=== PATIENT | female | born 1985 | race Caucasian/White ===

== ENCOUNTER 2022-12-26 20:33 | Outpatient (REF) | payer OTHER, SELFPAY ==
[2022-12-31 21:07] LABS: Age Gdln ACOG Testing Note (.); HPV Aptima Negative (Negative); IGP, Aptima HPV, rfx 16/18,45 Note (.)
== END 2022-12-26 20:34 | disposition home or self-care (01) ==
LOC: LAB 20:33
PROVIDERS: Visit Provider Obstetrics & Gynecology
DX: Z12.4 Encounter for screening for malignant neoplasm of cervix (principal); Z11.51 Encounter for screening for human papillomavirus (HPV)
CPT/HCPCS: 87624; G0145

== ENCOUNTER 2024-12-31 14:58 | Outpatient (REF) | payer OTHER, SELFPAY ==
--- OUTSIDE RECORDS SUMMARY | 2024-12-31 08:30 | XMS_ITS | Encounter Summary ---
Author Organization [facility] Address [address] [place] [address] Care Team Providers Care Epic Director Name Role Phone Unavailable Primary Care Provider Unavailabl e Reason for Visit * Reason Comments Well Women Visit Encounter Details Date Type Department Care Team (Latest Contact Info) Description 12/31/2024 8:30 AM EDT Procedure [facility] [address] [facility] [place] [address] [place] [id number] Hernandez Hays, DO [address] [place], [place] [id number] Well woman exam with routine gynecological exam; Encounter for screening mammogram for malignant neoplasm of breast; Menorrhagia with regular cycle; Encounter for weight management Social History Tobacco Use Types Packs/Day Years Used Date Smoking Tobacco: Every Day Cigarettes Alcohol Use Standard Drinks/Week Comments Yes 0 (1 standard drink = 0.6 oz pur e alcohol) occasional alcohol PHQ-2 Answer Date Recorded Patient Health Questionnaire-2 Score 0 12/27/2022 Comments No Sex and Gender Information Value Date Recorded Sex Assigned at Female 12/19/2022 10:22 AM EDT Legal Sex Female 11:47 PM EDT Gender Identity Female 12/19/2022 10:22 AM EDT Sexual Orientation Straight 12/19/2022 10 :22 AM EDT documented as of this encounter Last Filed Vital Signs Vital Sign Reading Time Taken Comments Blood Pressure 126/86 12/31/2024 8:36 AM EDT Pulse - - Temperature - - Respiratory Rate - - Oxygen Saturation - - Inhaled Oxygen Concentration - - Weight 99.6 kg (219 lb 8 oz) 12/31/2024 8:36 AM EDT Height 174 cm (5' 8.5 ) 12/31/2024 8:36 AM EDT Body Mass Index 32.89 12/31/2024 8:36 AM EDT documented in this encounter Progress Notes * Lynsey Blake LPN - 12/31/2024 8:30 AM EDT Reason for Appointment: Patient ID: Lolita Hunter is a 39 y.o. female who presents for Well Women Visit Patient presents today for Annual Exam. MEDICATIONS Current Outpatient Medications Medication Instructions Levonorgestrel (Mirena, 52 MG,) 20 MCG/DAY intrauterine device as directed Intrauterine ALLERGIES Allergies Allergen Reactions Aspirin Unknown Ibuprofen Unknown PROBLEMS Active Ambulatory Problems Diagnosis Date Noted Anxiety 12/25/2022 Gastroesophageal reflux disease 12/25/2022 Insulin resistance 12/25/2022 Major depressive disorder, single episode, unspecified 12/25/2022 Overweight 12/25/2022 Resolved Ambulatory Problems Diagnosis Date Noted No Resolved Ambulatory Problems Past Medical History: Diagnosis Date Depression GERD (gastroesophageal reflux disease) Intrauterine device surveillance Overweight (BMI 25.0-29.9) HISTORY PAST MEDICAL HISTORY SOCIAL HISTORY Past Medical History: Diagnosis Date Anxiety Depression GERD (gastroesophageal reflux disease) Intrauterine device surveillance Overweight (BMI 25.0-29.9) Social History Tobacco Use Smoking status: Every Day Types: Cigarettes Smokeless tobacco: Not on file Substance Use Topics Alcohol use: Yes Comment: occasional alcohol Drug use: Never FAMILY HISTORY Family History Problem Relation Name Age of Onset Hypertension Mother Cancer Mother Arthritis Mother Cancer Maternal Grandmother Cancer Maternal Grandfather SURGICAL HISTORY Past Surgical History: Procedure Laterality Date CERCLAGE CERVIX 2011 SECTION, LOW TRANSVERSE REVIEW OF SYSTEMS Review of Systems: Review of Systems Constitutional: Negative. HENT: Negative. Eyes: Negative. Respiratory: Negative. Cardiovascular: Negative. Gastrointestinal: Negative. Genitourinary: Positive for menstrual problem and vaginal bleeding. Musculoskeletal: Negative. Skin: Negative. Neurological: Negative. All other systems reviewed and are negative. Hematological: Negative. Endocrine: Negative. Allergic/Immunologic: Negative. OBJECTIVE Objective: Physical Exam Constitutional: Appearance: Normal appearance. She is well-developed. Genitourinary: Vulva normal. Breasts: Breasts are soft. Right: Normal. Left: Normal. Cardiovascular: Rate and Rhythm: Normal rate and regular rhythm. Pulmonary: Effort: Pulmonary effort is normal. Breath sounds: Normal breath sounds. Abdominal: General: Bowel sounds are normal. There is no distension. Palpations: Abdomen is soft. Tenderness: There is no abdominal tenderness. There is no guarding or rebound. Musculoskeletal: General: No swelling. Normal range of motion. Right lower leg: No edema. Left lower leg: No edema. Neurological: Mental Status: She is alert and oriented to person, place, and time. Skin: General: Skin is warm and dry. Psychiatric: Mood and Affect: Mood normal. Behavior: Behavior normal. Vitals and nursing note reviewed. Exam conducted with a casting coordinator present. Vitals: Estimated body mass index is 32.89 kg/m² as calculated from the following: Height as of this encounter: 5' 8.5 . Weight as of this encounter: 219 lb 8 oz. BP: 126/86 No LMP recorded. (Menstrual status: IUD). ASSESSMENT & PLAN ICD-10-CM 1. Well woman exam with routine gynecological exam Z01.419 THIN PREP TIS PAP AND HR HPV DNA 2. Encounter for screening mammogram for malignant neoplasm of breast Z12.31 Bilateral screening mammogram Bilateral screening mammogram Annual: Patient presents today for an annual exam. Patient states she is doing well and has complaints of menorrhagia and weight gain. Patient to start on Metformin and Adipex. Consent signed at visit today.Patient will obtain lab wok and ultrasound & return to office for Endometrial Biopsy. Patient to discuss dates with Image Scientist prior to leaving office today for Hysterectomy. Pap was obtained without difficulty and patient given mammogram order to have scheduled/obtained. Orders Placed This Encounter Procedures Bilateral screening mammogram US Pelvis w/ TV CBC and differential TSH hCG, quantitative, Protime-INR T4, free APTT Hemoglobin A1c Follow Up: Patient to return to clinic in 1 month for Adiex#2 appointment & also setup Endometrial Biopsy/Pre-op appointment accordingly for hysterectomy. Patient is to return in one year for annual unless needed otherwise. Documented by Lynsey Blake LPN on behalf of: Hernandez Hays DO documented in this encounter Plan of Treatment Upcoming Encounters Date Type Department Care Team (Late st Contact Info) Description 01/27/2025 3:30 PM EDT Office Visit [facility] [address] [place] [address] [place] [address] Katarzyna Manuel PA [address] [facility] [place] [address] 03/22/2025 2:30 PM EDT Ancillary Procedure [facility] [address] [facility] [place] [address] [place] [phone] 04/06/2025 2:30 PM EDT Procedure Visit [facility] [address] [facility] [place] [address] [place] [phone] Hernandez Hays, DO [address] [facility] [place] [address] Scheduled Orders Name Type Priority Associated Diagnoses Orde r Schedule Bilateral screening mammogram Imaging Routine Encounter for screening mammogram for malignant neoplasm of breast Expected: 12/31/2024 (Approximate), Expires: 03/03/2026 THIN PREP TIS PAP AND HR HPV DNA Pathology and Cytology Routine Well woman exam with routine gynecological exam Ordered: 12/31/2024 CBC and differential Lab Routine Menorrhagia with regular cycle Ordered: 12/31/2024 TSH Lab Routine Menorrhagia with regular cycle Ordered: 12/31/2024 hCG, quantitative, Lab Routine Menorrhagia with regular cycle Ordered: 12/31/2024 Protime-INR Lab Routine Menorrhagia with regular cycle Ordered: 12/31/2024 T4, free Lab Routine Menorrhagia with regular cycle Ordered: 12/31/2024 APTT Lab Routine Menorrhagia with regular cycle Expected: 12/31/2024 (Approximate), Expires: 12/31/2025 Hemoglobin A1c Lab Routine Menorrhagia with regular cycle Ordered: 12/31/2024 US Pelvis w/ TV Imaging Routine Menorrhagia with regular cycle Expected: 12/31/2024, Expires: 12/31/2025 documented as of this encounter Visit Diagnoses Diagnosis Well woman exam with routine gynecological exam Routine gynecological examination Encounter for screening mammogram for malignant neoplasm of breast Menorrhagia with regular cycle Encounter for weight management documented in this encounter
--- OUTSIDE RECORDS SUMMARY | 2024-12-31 15:01 | XMS_ITS | Data Portability ---
Author Organization [place] - [facility], Kaley Burns Address [address] [place] [address] Assessment No assessment recorded. Plan of Treatment Reminders Order Date Submit Date Provider Last Modified By Organization Details Last Modified Time Details Appointments None recorded. Lab None recorded. Referral None recorded. Procedures None recorded. Surgeries None recorded. Imaging None recorded. Medication Orders pseudoephed rine-guaife nesin ER 60 mg-600 mg tablet,exte nd release 12hr 2024 025 [id number], [address] [place], [address], 15:29:03 fluticasone propionate 50 mcg/actuati on nasal spray,suspe nsion 2024 025 [facility], [address] [facility] [address], [place] [address], [place], [place], [id number], 15:29:43 Patient TargetsNo targets recorded. Patient Instructions Encounter Date Encounter Id Patient Instructions Last Modified By Organization Details Last Modified Time 07/28/2024 [id number] upper respirator y infection (cold): care instructions [email or web address] Not available 07/28/2024 15:46:14 middle ear fluid : care instructions [email or web address] Not available 07/28/2024 15:46:14 Discussed that this is likely viral given symptoms and duration. Discussed medication usage. Advised that ome typically resolves on its own, but may take several weeks after initial uri symptoms to clear. Encouraged increased fluid intake, adequate rest and proper hand hygiene. Follow up if symptoms persist and/or worsen. [email or web address] Not available 07/28/2024 15:46:07 Reason for Referral None Reported. Procedures Surgical History Date Name Laterality Status Provider Name and Address Organization Details Recorded Time 8 Caesarean Section completed JANINE VALVERDE IN [facility] 07/28/2024 15:11:31 Imaging Results None recorded. Procedure Notes None recorded. Medical Equipment None Reported. Allergies No known drug allergies Medications Name Sig Start Date Stop Date Status Note LastModified by Organization Details LastModified Time quetiapine 25 mg tablet TAKE 1 TABLET BY MOUTH AT BEDTIME 07/28 completed Not Available Not Available Not Available pseudoephed rine-guaife nesin ER 60 mg-600 mg tablet,exte nd release 12hr Take 2 tablets every 12 hours by oral route as needed for 7 days. 2024 active Not Available Not Available Not Avai lable fluticasone propionate 50 mcg/actuati on nasal spray,suspe nsion [place] 2 sprays every day by intranasa l route for 30 days. 2024 active Not Available Not Available Not Avai lable metformin ER 500 mg tablet,exte nded release 24 hr TAKE 1 TABLET BY MOUTH IN THE EVENING WITH MEALS, DO NOT CRUSH, CHEW, OR SPLIT 07/28 completed Not Available Not Available Not Available escitalopra m 20 mg tablet TAKE 1 TABLET BY MOUTH EVERY DAY 07/28 completed Not Available Not Available Not Available Vitals Date Recorded Body height Body mass index (BMI) Body weight Body temperature Oxygen saturation Oxygen saturation in Arterial blood by Pulse oximetry Heart rate Systolic And Diastolic Provider Name and Address Organization Details Last Updated DateTime 5 172.72 cm 33.8 kg/m2 766960. 22 g 98.4 [degF] 99 % 99 % 83 /min 115/80 mm[Hg] JANINE VALVERDE IN [facility] 15:15:41 Social History Question Answer Notes LastModified by Organizat ion Details LastModified Time Tobacco Smoking Status Smoker, Current Status Unknown JANINE giron, [place] [facility] 07/28/2024 15:11:30 What Is Your Level Of Caffeine Consumption? Occasional Information not available 07/28/2024 How Much Tobacco Do You Chew? None [email or web address] Information not available 07/28/2024 What Is The Highest Grade Or Level Of School You Have Completed Or The Highest Degree You Have Received? [id number] [email or web address] Information not available 07/28/2024 Cigar Smoking No [email or web address] Information not available 07/28/2024 Does Anyone Insult Or Talk Down To You? Never [email or web address] Information not available 07/28/2024 Does Anyone Physically Hurt You At Home? Never [email or web address] Information not available 07/28/2024 Does Anyone Scream Or Curse At You? Never [email or web address] Information not available 07/28/2024 Does Anyone Threaten/bully You With Harm? Never [email or web address] Information not available 07/28/2024 Lives With Spouse [email or web address] Information no t available 07/28/2024 Sleep Habits 8 Hours Interupted [email or web address] Information not available 07/28/2024 Have You Ever Served In The ? No [email or web address] Information not available 07/28/2024 What Was The Date Of Your Most Recent Tobacco Screening? 07/28/2024 [email or web address] Information not available 07/28/2024 What Is Your Relationship Status? [email or web address] Information not available 07/28/2024 How Much Tobacco Do You Smoke? 2 PPW Information not available 07/28/2024 Has Tobacco Cessation Counseling Been Provided? No [email or web address] Information not available 07/28/2024 How Many Years Have You Smoked Tobacco? 20 [email or web address] Information not available 07/28/2024 Sex: Unknown Functional Status Question Answer Note LastModified by Organizat ion Details LastModified Time Do you or have you ever used any other forms of tobacco or nicotine? No [email or web address] Information not available 07/28/2024 What is your level of alcohol consumption? Moderate [email or web address] Information not available 07/28/2024 Do you or have you ever used smokeless tobacco? Never used smokeless tobacco [email or web address] Information not available 07/28/2024 What is your occupation? [employer] Information not available 07/28/2024 Mental Status None recorded. Family History Relationship Description Onset Age of this Age Resolved Age Notes LastModified by Organization Details LastModified Time Mother Arthritis [email or web address] Not availa ble 07/28/2024 15:10:16 Mother Hypertensive disorder Not available 07/28 15:10:16 Medical History Condition Response Sinus Infections Y Anxiety Y Depression Y Gynecological HistoryNo gynecological history recorded. Obstetrics History GPAL:G 0 P 0 0 0 0 Past Encounters Encounter ID Performer Location Encounter Start Date Encounter Closed Date Diagnosis/Indication Diagnosis SNOMED-CT Code Diagnosis ICD10 Code Diagnosis Note [id number] Bertin Bernardo MD [facility] [address] [place] [address] 07/28/2024 15:07:49 07/28/2024 15:46:42 Acute upper respiratory infection 26344956 J06.9 Serous otitis media 8032 7007 H65.02 Health Concerns Section Related Observation LastModified by Organization Detai ls LastModified Time None Recorded Concern Status LastModified by Organization Details LastModified Time None Recorded Advance Directives Directive None Recorded Payers Insurance Date Sequence Insurance Name Policy Number Policy [place] Covered Member ID [place] Member ID Guarantor Name 04/20/2024 1 *SELF PAY* UNKNOWN [facility] NO_INS_NU MBER_AVAI LABLE [facility] 05/28/2024 1 *SELF PAY* UNKNOWN [facility] NO_INS_NU MBER_AVAI LABLE [facility] 07/28/2024 1 [facility] MEDBEN - PPO [id number] [facility] [id number] [facility] Notes Date Note Type Note Provider Name and Address Organization Details Recorded Time 07/28/2024 text/html AM is a 39 yo female presenting with bilateral ear pain, sore throat and nasal congestion onset 07/26/2024. Left ear pain greater than right. Pt has taken tylenol sinus with some relief in symptoms. Ears hurt worse when pt is up moving around. Pts daughter with similar symptoms. Lexie Carvajal NP [address], [place], [address], [place] - [facility] 07/28/2024 15:46:17 OBGyn Episode No OBEpisode recorded.
--- OUTSIDE RECORDS SUMMARY | 2024-12-31 15:01 | XMS_ITS | Encounter Summary ---
Author Organization [facility] Address [address] [facility] [place] [address] Care Team Providers Care Congressional Representative Name Role Phone Unavailable Primary Care Provider Unavailabl e Encounter Details Date Type Department Care Team (Latest Contact Info) Description 12/30/2024 Travel Social History Tobacco Use Types Packs/Day Years [...] AM EDT documented as of this encounter Plan of Treatment Upcoming Encounters Date Type Department Care Team (Late st Contact Info) Description 01/27/2025 3:30 PM EDT Office Visit [facility] OB [address] [place] [address] [place] [address] Katarzyna Manuel PA [address] [facility] [address] [place], [place] [address] 03/22/2025 2:30 PM EDT Ancillary Procedure [facility] [place] [facility] [place] [address] 04/06/2025 2:30 PM EDT Procedure Visit [facility] OB [address] [place], [place] [address], [place] [address] Hernandez Hays, [address] [place], [place] [phone] documented as of this encounter Visit Diagnoses Not on filedocumented in this encounter
--- OUTSIDE RECORDS SUMMARY | 2024-12-31 15:01 | XMS_ITS | Encounter Summary ---
Author Organization [facility] Address [address] [facility] [place] [address] Care Team Providers Care Master Barber Name Role Phone Unavailable Primary Care Provider Unavailabl e Encounter Details Date Type Department Care Team (Late Contact Info) Description 12/31/2024 Bamboo flowsheet [facility] [address] [facility] [place] [address] [place] [address] Hernandez Hays, DO [address] [facility] [address] [place], [facility] Social History Tobacco Use Types Packs/Day Years [...] PM EDT [facility] [address] [facility] [address] [place] [address] Katarzyna Manuel PA [address] [place], [facility] 03/22/2025 2:30 PM EDT Ancillary Procedure [facility] OB [address] [facility] [phone] 04/06/2025 2:30 PM EDT Procedure Visit [facility] OB [address] [facility] [place] [address] [place] [address] Hernandez Hays, [address] [facility] [address] [place], [place] [phone] documented as of this encounter Visit Diagnoses Not on filedocumented in this encounter
--- OUTSIDE RECORDS SUMMARY | 2024-12-31 15:01 | XMS_ITS | Clinical Summary ---
Author Organization [facility] Address [address] [place] [address] Care Team Providers Care Environmental Tech Name Role Phone Unavailable Primary Care Provider Unavailabl e Allergies Active Allergy Reactions Criticality Noted Date Comments Aspirin Unknown 12/26/2022 Ibuprofen Unknown 12/26/2022 Medications Levonorgestrel (Mirena, 52 MG,) 20 MCG/DAY intrauterine device as directed Intrauterine Active phentermine (Adipex-P) 37.5 MG tabletIndicatio ns:Encounter for weight management Take 1 tablet (37.5 mg) by mouth in the morning. Take before meals. 30 tablet 01/01/20 25 2024 Active metFORMIN XR (Glucophage-XR) 500 MG 24 hr tabletIndicatio ns:Encounter for weight management Take 1 tablet (500 mg) by mouth in the evening. Take with meals Do not crush, chew, or split. 30 tablet 11 01/01/20 25 2024 Active FLUoxetine (PROzac) 10 MG capsule TAKE 1 CAPSULE BY MOUTH EVERY DAY FOR 30 DAYS 2024 Discontinued phentermine (Adipex-P) 37.5 MG tabletIndicatio ns:Weight gain Take 1 tablet (37.5 mg) by mouth in the morning. Take before meals. 30 tablet 02/22/20 23 2024 Discontinued metFORMIN XR (Glucophage-XR) 500 MG 24 hr tabletIndicatio ns:Weight gain TAKE 1 TABLET BY MOUTH IN THE EVENING WITH MEALS, DO NOT CRUSH, CHEW, OR SPLIT 90 tablet 4 03/27/20 23 2024 Discontinued Active Problems Problem Noted Date Diagnosed Date Anxiety 12/25/2022 Gastroesophageal reflux disease 12/25/2022 Insulin resistance 12/25/2022 Major depressive disorder, single episode, unspe cified 12/25/2022 Overweight 12/25/2022 Encounters Date Type Department Care Team Description 12/31/2024 8:30 AM EDT Procedure Visit [facility] OB [address] [place] [address] Hernandez Hays DO Well woman exam with routine gynecological exam; Encounter for screening mammogram for malignant neoplasm of breast; Menorrhagia with regular cycle; Encounter for weight management 12/31/2024 Bamboo flowsheet [facility] [address] [place] [address] Hernandez Hays DO 12/30/2024 Travel from Last 3 Months Family History Medical History Relation Name Comments Cancer Maternal Grandfather Cancer Maternal Grandmother Arthritis Mother Cancer Mother Hypertension Mother Relation Name Status Comments Maternal Grandfather Maternal Grandmother Mother Social History Tobacco Use Types Packs/Day Years [...] Orientation Straight 12/19/2022 10 :22 AM EDT Last Filed Vital Signs Vital Sign Reading [...] Mass Index 32.89 12/31/2024 8:36 AM EDT Plan of Treatment Upcoming Encounters Date Type Department Care Team (Late st Contact Info) Description 01/27/2025 3:30 PM EDT Office Visit [facility] OB [address] [facility] [place] [address] Katarzyna Manuel PA [address] [facility] [address] [place], [place] [phone] 03/22/2025 2:30 PM EDT Ancillary Procedure [facility] OB [address] [facility] [place] [address] [place] [address] 04/06/2025 2:30 PM EDT Procedure Visit [facility] OB [address] [facility] [place] [address] [place] [address] Hernandez Hays DO [address] [facility] [address] [place], [place] [phone] Insurance [email or web address]
--- OUTSIDE RECORDS SUMMARY | 2024-12-31 15:01 | XMS_ITS | Encounter Summary ---
Author Organization [facility] Address [address] [facility] [place] [address] Care Team Providers Care Middle [employer] Guidance Counselor Name Role Phone Katarzyna Manuel Unavailable Encounter Details Date Type Department Care Team (Late Contact Info) Description 01/23/2023 Abstract [facility] OB [address] [facility] [place] [place] [address] [place] [address] Katarzyna Manuel PA [address] [place] [address] [place] [address] Social History Tobacco Use Types Packs/Day Years [...] Orientation Straight 12/19/2022 10 :22 AM EDT COVID-19 Exposure Response Date Recorded In the last 10 days, have yo u been in contact with someone who was confirmed or suspected to have Coronavirus/COVID-19? No / Unsure 01/22/2023 7:52 AM EDT documented as of this encounter Plan of Treatment Upcoming Encounters Date Type Department Care Team ([facility] Contact Info) Description 01/27/2025 3:30 PM EDT Office Visit [facility] OB [address] [facility] [place] [address] [place] [address] Katarzyna Manuel PA [address] [facility] [place] [address] 03/22/2025 2:30 PM EDT Ancillary Procedure [facility] OB [address] [facility] [place] [address] [place] [phone] 04/06/2025 2:30 PM EDT Procedure Visit [facility] OB [address] [facility] [place] [address] [place] [phone] Hernandez Hays, DO [address] [facility] [place] [address] documented as of this encounter Visit Diagnoses Not on filedocumented in this encounter Care Teams [employer] Guidance Counselor Relationship Specialty Start Date End Date Katazryna Manuel PA [address] [place] [address] [place] [address] PCP - [facility] [place] [employer] 02/15/22 02/26/24 documented as of this encounter
[2025-01-02 15:10] LABS: Age Gdln ACOG Testing Note (.); IGP, Aptima HPV, rfx 16/18,45 Note (.)
== END 2024-12-31 14:59 | disposition home or self-care (01) ==
LOC: LAB 14:58
PROVIDERS: PCP Family Medicine; Visit Provider Obstetrics & Gynecology
DX: Z01.419 Encounter for gynecological examination (general) (routine) without abnormal findings (principal)
CPT/HCPCS: 87624; 88175

== ENCOUNTER 2025-01-14 10:38 | Outpatient (OUT) | payer OTHER, SELFPAY ==
--- NOTE | 2025-01-14 | MM_ITS ---
Patient Name: ASHWIN GODOY MR#: [id number] : 1985 Exam Date: 01/14/2025 Ordering Doctor: DR ILEANA OROZCO . RADIOLOGY REPORT PROCEDURE: MM TOMOSYNTHESIS SCREENING BI COMPARISON: None. INDICATIONS: Screening for malignancy in breasts Calculator Name NCI Breast Cancer Risk Assessment Tool 5 Year Breast Cancer Risk Not Reported. Lifetime Breast Cancer Risk Not Reported. Personal Breast Cancer No Personal Ovarian Cancer No Treatments None Family Cancers None LOCATION: The BREAST COMPOSITION: The breasts are heterogeneously dense, which may obscure small masses. FINDINGS: RIGHT BREAST: No significant suspicious finding. LEFT BREAST: Focal asymmetries are noted in the inferior and medial aspect of the left breast measuring 6 and 7 mm is in greatest dimension 7.5 and 11.5 cm from the nipple. These are in the middle depth . DIAGNOSTIC CATEGORY 0--INCOMPLETE: NEED ADDITIONAL IMAGING EVALUATION. RECOMMENDATIONS: ADDITIONAL MAMMOGRAPHIC VIEWS REQUIRED: LEFT BREAST - spot compressed views of the left breast with ultrasound if necessary is recommended. PLEASE NOTE: A NORMAL MAMMOGRAM DOES NOT EXCLUDE THE POSSIBILITY OF BREAST CANCER. A CLINICALLY SUSPICIOUS PALPABLE LUMP SHOULD BE BIOPSIED. Dictated by: Frankie Zurita MD on 01/14/2025 at 16:42 Approved by: Frankie Zurita MD on 01/14/2025 at 16:48
== END 2025-01-14 10:39 | disposition home or self-care (01) ==
LOC: MAMMO 10:42
PROVIDERS: PCP Nurse Practitioner; Visit Provider Obstetrics & Gynecology
DX: Z12.31 Encounter for screening mammogram for malignant neoplasm of breast (principal); R92.8 Other abnormal and inconclusive findings on diagnostic imaging of breast
CPT/HCPCS: 77063; 77067

== ENCOUNTER 2025-03-22 14:44 | Outpatient (OUT) | payer OTHER, SELFPAY ==
--- OUTSIDE RECORDS SUMMARY | 2025-03-22 14:48 | XMS_ITS | Clinical Summary ---
Author Organization [facility] tem Address [id number] [address] [place] [address] Care Team Providers Care Mill Manager Name Role Phone Unavailable Primary Care Provider Unavailabl e Social History Tobacco Use Types Packs/Day Years Used Date Smoking Tobacco: Never Assessed Childcare Answer Date Recorded Childcare Unknown 11/26/2018 Employment Answer Date Recorded Employment Unknown 11/26/2018 Comments Unknown Sex and Gender Information Value Date Recorded Sex Assigned at Not on file Legal Sex Female 10:42 AM EDT Gender Identity Not on file Sexual Orientation Not on file Plan of Treatment Not on file Medical Devices Not on file
--- OUTSIDE RECORDS SUMMARY | 2025-03-22 14:48 | XMS_ITS | Encounter Summary ---
Author Organization [facility] Address [address] [facility] [place] [address] Care Team Providers Care Algorithm Design Engineer Name Role Phone Unavailable Primary Care Provider Unavailabl e Encounter Details Date Type Department Care Team (Latest Contact Info) Description 03/16/2025 Travel Social History Tobacco Use Types Packs/Day [...] Care Team (Late st Contact Info) Description 04/06/2025 2:30 PM EDT Procedure Visit [facility] [address] [facility] [address] [place] [address] Hernandez Hays DO [address] [facility] [address] [place], [place] [address] 05/19/2025 10:30 AM EST Office Visit [facility] [address] [facility] [place] [address] [place] [address] Katarzyna Manuel PA [address] [facility] [address] [place], [place] [address] documented as of this encounter Visit Diagnoses Not on filedocumented in this encounter
--- OUTSIDE RECORDS SUMMARY | 2025-03-22 14:48 | XMS_ITS | Encounter Summary ---
Author Organization [facility] Address [address] [facility] [place] [address] Care Team Providers Care Manager Rental Name Role Phone Unavailable Primary Care Provider Unavailabl e Encounter Details Date Type Department Care Team ([facility] Contact Info) Description 01/06/2025 Orders Only [facility] [place] [address] [facility] [place] [address] [place] [phone] Mary Salguero LPN [address] [facility] [place] [facility] Social History Tobacco Use Types Packs/Day Years [...] Encounters Date Type Department Care Team (Late Contact Info) Description 04/06/2025 2:30 PM EDT Procedure Visit [facility] [place] [address] [place] [phone] Hernandez Hays DO [address] [place] [address] 05/19/2025 10:30 AM EST Office Visit [facility] [address] [place] [address] Katarzyna Manuel PA [address] [facility] [place] [address] documented as of this encounter Procedures Procedure Name Priority Date/Time Associated Diagnosis Comments PAP SMEAR Routine 12/31/2024 12:00 AM EDT documented in this encounter Results * Pap Smear (12/31/2024 12:00 AM EDT) Swab Cervical swab / Unknown us Lis Nurse [facility] LAB CYTOLOGY ORDERABLES Final Result EXTERNAL LAB documented in this encounter Visit Diagnoses Not on filedocumented in this encounter
--- OUTSIDE RECORDS SUMMARY | 2025-03-22 14:48 | XMS_ITS | Clinical Summary ---
Author Organization [facility] Address [address] [place] [address] Care Team Providers Care Wind Instrument Repairer Name Role Phone Unavailable Primary Care Provider Unavailabl e Allergies Active Allergy Reactions Criticality Noted Date Comments Aspirin Unknown 12/26/2022 Ibuprofen Unknown 12/26/2022 Medications Levonorgestrel (Mirena, 52 MG,) 20 MCG/DAY intrauterine device as directed Intrauterine Active phentermine (Adipex-P) 37.5 MG tabletIndicatio ns:Encounter for weight management Take 1 tablet (37.5 mg) by mouth in the morning. Take before meals. 90 tablet 02/25/20 25 2024 Active metFORMIN XR (Glucophage-XR) 500 MG 24 hr tabletIndicatio ns:Encounter for weight management Take 1 tablet (500 mg) by mouth in the evening. Take with meals Do not crush, chew, or split. 30 tablet 11 01/01/20 25 2024 Discontinued phentermine (Adipex-P) 37.5 MG tabletIndicatio ns:Encounter for weight management Take 1 tablet (37.5 mg) by mouth in the morning. Take before meals. 30 tablet 01/28/20 25 2024 Discontinued Active Problems Problem Noted Date Diagnosed Date Anxiety 12/25/2022 Gastroesophageal reflux disease 12/25/2022 Insulin resistance 12/25/2022 Major depressive disorder, single episode, unspe cified 12/25/2022 Overweight 12/25/2022 Encounters Date Type Department Care Team Description 03/16/2025 Travel 02/24/2025 3:30 PM EDT Office Visit [facility] [place] [facility] [address] [place] [address] [place] [phone] Katarzyna Manuel PA Encounter for weight management 02/24/2025 Bamboo flowsheet [facility] [place] [facility] [address] [place] [address] Katarzyna Manuel PA 01/29/2025 Results Follow-Up [facility] [place] [facility] [address] [facility] [place] [address] Radha Nj LPN Left diagnostic mammogram with tomosynthesis 01/29/2025 Abstract [facility] [place] [facility] [address] [facility] [place] [address] Ileana Hays, 01/28/2025 External Result Encounter [facility] External Department Unsolicited Ileana Hays, DO 01/27/2025 3:30 PM EDT Office Visit [facility] [address] [facility] [place] [place] [address] Katarzyna Manuel PA Encounter for weight management 01/27/2025 Bamboo flowsheet [facility] [address] [place] [address] Katarzyna Manuel PA 01/18/2025 Telephone [facility] [address] [facility] [place] [address] Lyndsay Whitman MA 01/14/2025 Clinisync Result Encounter [facility] External Department Unsolicited Ileana Hays, DO 01/06/2025 Orders Only [facility] [address] [place] [address] Mary Salguero LPN 12/31/2024 8:30 AM EDT Procedure Visit [facility] [address] [place] [address] Ileana Hays, Well woman exam with routine gynecological exam; Encounter for screening mammogram for malignant neoplasm of breast; Menorrhagia with regular cycle; Encounter for weight management 12/31/2024 Clinisync Result Encounter [facility] External Department Unsolicited Ileana Hays DO 12/31/2024 Bamboo flowsheet [facility] [address] [place] [address] Ileana Hays DO 12/30/2024 Travel from Last 3 [...] Sign Reading Time Taken Comments Blood Pressure 120/70 02/24/2025 3:33 PM EDT Pulse - - Temperature - - Respiratory Rate - - Oxygen Saturation - - Inhaled Oxygen Concentration - - Weight 94.3 kg (208 lb) 02/24/2025 3:33 PM EDT Height 174 cm (5' 8.5 ) 12/31/2024 8:36 AM EDT Body Mass Index 31.17 12/31/2024 8:36 AM EDT Plan of Treatment Upcoming Encounters Date Type Department Care Team (Late st Contact Info) Description 04/06/2025 2:30 PM EDT Procedure Visit [facility] [place] [address] [place] [phone] Ileana Hays, DO [address] [place], [place] [phone] 05/19/2025 10:30 AM EST Office Visit [facility] [address] [place] [address] Katarzyna Manuel PA [address] [place] [address] [address] [place], [facility] Procedures Procedure Name Priority Date/Time Associated Diagnosis Comments BI MAMMOGRAM DIAGNOSTIC TOMOSYNTHESIS LEFT 01/28/2025 1:43 PM EDT MM TOMOSYNTHESIS SCREENING BI 01/14/2025 4:48 PM EDT IGP,APTIMA HPV,AGE GDLN Routine 12/31/2024 8:27 AM EDT PAP SMEAR Routine 12/31/2024 12:00 AM EDT from Last 3 Months Results * Left diagnostic mammogram with tomosynthesis (01/28/2025 1:43 PM EDT) Anatomical Region Laterality Modality Breast Left Mammography 01/28/2025 1:43 PM EDT Impressions 01/28/2025 2:13 PM EDT IMPRESSION: NO MAMMOGRAPHIC EVIDENCE OF MALIGNANCY. ROUTINE FOLLOW-UP IS RECOMMENDED IN ONE YEAR. RESULT CODE: 1 Negative DENSITY CODE: 2 (approximately 25-50% glandular) There are scattered areas of fibroglandular density. FOLLOW UP: 1YR The false-negative rate of mammography is approximately 10-percent. Management of a palpable abnormality must be based on clinical grounds. Patient was entered into a reminder system with a target due date for the next mammogram. Impression dictated by: Henry Leon Jr., D.OEnrique 01/28/2025 2:16 PM Dictation Location: [place] [address] Addendum Dictated By: Henry Leon Jr, DO Addendum Signed By: <Electronically signed by Henry Leon Jr, DO in OV> 01/28/251415 Addendum Cosigned By: DD/ TD/TT: 01/28/25 CLINICAL DATA: Callback focal asymmetries left breast Left DIAGNOSTIC MAMMOGRAM - WITH TOMOSYNTHESIS AND CAD COMPARISON:Outside mammogram 01/14/2025 Tomosynthesis imaging was obtained using low-dose digital technique. This examination was reviewed with the aid of CAD. FINDINGS: The left breast is composed of scattered fibroglandular densities. Previously identified focal asymmetries compress out on the spot compression view suggests overlapping stroma. MM/MM diagnostic mammo LT w/CAD IMPRESSION: NO MAMMOGRAPHIC EVIDENCE OF MALIGNANCY. ROUTINE FOLLOW-UP IS RECOMMENDED IN ONE YEAR. RESULT CODE: 1 Negative DENSITY CODE: 2 (approximately 25-50% glandular) There are scattered areas of fibroglandular density. FOLLOW UP: 1YR The false-negative rate of mammography is approximately 10-percent. Management of a palpable abnormality must be based on clinical grounds. Patient was entered into a reminder system with a target due date for the next mammogram. Dictation Location: [place] [address] Dictated By: Henry Leon Jr, DO 01/28/25 1343 Signed By: 01/28/25 1416 Narrative 01/28/2025 2:13 PM EDT [facility] [address] [place] [address] Mammography Report Signed with Addenda Patient: Ashwin Godoy MR#: [id number] : 1985 Acct:[id number] Age/Sex: 40 / F Adm Date: 01/28/25 Loc: [place] Room: Type: [facility] Attending Dr: Ileana Hays DO Ordering Provider: Ileana Hays Date of Service: 01/28/25 Procedure(s): MM diagnostic mammo LT w/CAD Accession Number(s): ([id number]) MM/MM diagnostic mammo LT w/CAD: R92.8 Copies to: Ileana George CNP ADDENDUM 1 CLINICAL DATA: Callback focal asymmetries left breast Left DIAGNOSTIC MAMMOGRAM - WITH TOMOSYNTHESIS AND CAD COMPARISON:Outside mammogram 01/14/2025 Tomosynthesis imaging was obtained using low-dose digital technique. This examination was reviewed with the aid of CAD. FINDINGS: The left breast is composed of scattered fibroglandular densities. Previously identified focal asymmetries compress out on the spot compression view suggests overlapping stroma. Addendum Dictated By: Henry Leon Jr, DO Addendum Signed By: <Electronically signed by Henry Leon Jr, DO in OV> 01/28/251415 Addendum Cosigned By: DD/ TD/TT: 01/28/25 ADDENDUM 1 MM/MM diagnostic mammo LT w/CAD Procedure Note Henry Leon Jr., - 01/28/2025 [place] [address] Mammography Report Signed with Addenda Patient: Ashwin Godoy DMR#: [id number] : 1985Acct:[id number] Age/Sex: 40 / FAdm Date: 01/28/25 Loc: [place] Room:Type: [facility] Attending Dr: Ileana Hays DO Ordering Provider: Ileana Hays Date of Service: 01/28/25 Procedure(s): MM diagnostic mammo LT w/CAD Accession Number(s): ([id number]) MM/MM diagnostic mammo LT w/CAD: R92.8 Copies to: Ileana George CNP ADDENDUM 1 CLINICAL DATA: Callback focal asymmetries left breast Left DIAGNOSTIC MAMMOGRAM - WITH TOMOSYNTHESIS AND CAD COMPARISON:Outside mammogram 01/14/2025 Tomosynthesis imaging was obtained using low-dose digital technique.This examination was reviewed with the aid of CAD. FINDINGS: The left breast is composed of scattered fibroglandular densities.Previously identified focal asymmetries compress out on the spot compression view suggests overlappingstroma. Addendum Dictated By: Henry Leon Jr, DO Addendum Signed By: <Electronically signed by Jr Miner DO in OV> 01/28/251415 Addendum Cosigned By: DD/ TD/TT: 01/28/25 ADDENDUM 1 MM/MM diagnostic mammo LT w/CAD IMPRESSION: IMPRESSION: NO MAMMOGRAPHIC EVIDENCE OF MALIGNANCY. ROUTINE FOLLOW-UP IS RECOMMENDED IN ONE YEAR. RESULT CODE: 1 Negative DENSITY CODE: 2 (approximately 25-50% glandular) There are scatteredareas of fibroglandular density. FOLLOW UP: 1YR The false-negative rate of mammography is approximately 10-percent. Management of a palpable abnormality must be based on clinical grounds. Patient was entered into a reminder system with a target due date for thenext mammogram. Impression dictated by: Henry Leon Jr., D.OEnrique 01/28/2025 2:16 PM Dictation Location: [facility] Addendum Dictated By: Henry Leon Jr, DO Addendum Signed By: <Electronically signed by Jr Miner DO in OV> 01/28/251415 Addendum Cosigned By: DD/ TD/TT: 01/28/25 CLINICAL DATA: Callback focal asymmetries left breast Left DIAGNOSTIC MAMMOGRAM - WITH TOMOSYNTHESIS AND CAD COMPARISON:Outside mammogram 01/14/2025 Tomosynthesis imaging was obtained using low-dose digital technique.This examination was reviewed with the aid of CAD. FINDINGS: The left breast is composed of scattered fibroglandular densities.Previously identified focal asymmetries compress out on the spot compression view suggests overlappingstroma. MM/MM diagnostic mammo LT w/CAD IMPRESSION: NO MAMMOGRAPHIC EVIDENCE OF MALIGNANCY. ROUTINE FOLLOW-UP IS RECOMMENDED IN ONE YEAR. RESULT CODE: 1 Negative DENSITY CODE: 2 (approximately 25-50% glandular) There are scattered areasof fibroglandular density. FOLLOW UP: 1YR The false-negative rate of mammography is approximately 10-percent. Management of a palpable abnormality must be based on clinical grounds. Patient was entered into a reminder system with a target due date for thenext mammogram. Dictation Location: [facility] Dictated By: Henry Leon Jr, DO 01/28/251342 Signed By:01/28/251415 us Ileana Hays DO IM BI PROCEDURES Edited Result - Final * MM TOMOSYNTHESIS SCREENING BI (01/14/2025 4:48 PM EDT) Anatomical Region Laterality Modality Other 01/14/2025 4:48 PM EDT Narrative 01/14/2025 4:50 PM EDT [facility] [address] [place] [id number] Mammography Report Signed Patient: ASHWIN GODOY MR#: [id number] : 1985 Acct:[id number] Age/Sex: 40 / F ADM Date: 01/14/25 Loc: MAMMO Attending Dr: Ileana Hays D.O. Ordering Physician: Ileana Hays D.O. Results: Date of Service: 01/14/25 Follow Up: Procedure(s): MM tomosynthesis screening BI Accession Number(s): [id number] cc: Ileana Hays D.O.; DEWAYNE GEORGE Patient Name: ASHWIN GODOY MR#: [id number] : 1985 Exam Date: 01/14/2025 Ordering Doctor: DR ILEANA HAYS . RADIOLOGY REPORT PROCEDURE: MM TOMOSYNTHESIS SCREENING BI COMPARISON: None. INDICATIONS: Screening for malignancy in breasts Calculator Name NCI Breast Cancer Risk Assessment Tool 5 Year Breast Cancer Risk Not Reported. Lifetime Breast Cancer Risk Not Reported. Personal Breast Cancer No Personal Ovarian Cancer No Treatments None Family Cancers None LOCATION: [facility] BREAST COMPOSITION: The breasts are heterogeneously dense, which may obscure small masses. FINDINGS: RIGHT BREAST: No significant suspicious finding. LEFT BREAST: Focal asymmetries are noted in the inferior and medial aspect of the left breast measuring 6 and 7 mm is in greatest dimension 7.5 and 11.5 cm from the nipple. These are in the middle depth . DIAGNOSTIC CATEGORY 0--INCOMPLETE: NEED ADDITIONAL IMAGING EVALUATION. RECOMMENDATIONS: ADDITIONAL MAMMOGRAPHIC VIEWS REQUIRED: LEFT BREAST - spot compressed views of the left breast with ultrasound if necessary is recommended. PLEASE NOTE: A NORMAL MAMMOGRAM DOES NOT EXCLUDE THE POSSIBILITY OF BREAST CANCER. A CLINICALLY SUSPICIOUS PALPABLE LUMP SHOULD BE BIOPSIED. Dictated by: Frankie Zurita MD on 01/14/2025 at 16:42 Approved by: Frankie Zurita MD on 01/14/2025 at 16:48 Dictated By: Frankie Zurita M.D. Signed By: 01/14/25 1650 DD/ 1648 TD/TT: Audience Coordinator: Procedure Note Radiology, Radiologist, - 01/14/2025 [place] [address] Mammography Report Signed Patient: ASHWIN GODOY DMR#: [id number] : 1985Acct:[id number] Age/Sex: 40 / FADM Date: 01/14/25 Loc: MAMMO Attending Dr: Ileana Hays D.O. Ordering Physician: Ileana Hays D.O.Results: Date of Service: 01/14/25Follow Up: Procedure(s): MM tomosynthesis screening BI Accession Number(s): [id number] cc: Ileana Hays D.O.; DEWAYNE GEORGE Patient Name: ASHWIN GODOY MR#: [id number] : 1985 Exam Date: 01/14/2025 Ordering Doctor: DR ILEANA HAYS . RADIOLOGY REPORT PROCEDURE: MM TOMOSYNTHESIS SCREENING BI COMPARISON: None. INDICATIONS: Screening for malignancy in breasts Calculator Name NCI Breast Cancer Risk Assessment Tool 5 Year Breast Cancer Risk Not Reported. Lifetime Breast Cancer Risk Not Reported. Personal Breast Cancer No Personal Ovarian Cancer No Treatments None Family Cancers None LOCATION: [facility] BREAST COMPOSITION: The breasts are heterogeneously dense, which may obscure small masses. FINDINGS: RIGHT BREAST: No significant suspicious finding. LEFT BREAST: Focal asymmetries are noted in the inferior and medialaspect of the left breast measuring 6 and 7 mm is in greatest dimension 7.5 and 11.5cm from the nipple. These are in the middle depth . DIAGNOSTIC CATEGORY 0--INCOMPLETE: NEED ADDITIONAL IMAGING EVALUATION. RECOMMENDATIONS: ADDITIONAL MAMMOGRAPHIC VIEWS REQUIRED: LEFT BREAST - spot compressedviews of the left breast with ultrasound if necessary is recommended. PLEASE NOTE: A NORMAL MAMMOGRAM DOES NOT EXCLUDE THE POSSIBILITY OFBREAST CANCER. A CLINICALLY SUSPICIOUS PALPABLE LUMP SHOULD BE BIOPSIED. Dictated by: Frankie Zurita MD on 01/14/2025 at 16:42 Approved by: Frankie Zurita MD on 01/14/2025 at 16:48 Dictated By: Frankie Zurita M.D. Signed By:01/14/251649 DD/ 47 TD/TT: Audience Coordinator: Ileana Hays DO [facility] IMAGING Final Result * IGP,APTIMA HPV,AGE GDLN (12/31/2024 8:27 AM EDT) [facility] GDLN ACOG TESTING Note . [facility] Comment: TESTS RESULT FLAG UNITS REF RANGE LAB Clinician Provided Cytology Information Source.............Cervix;Endocervix No. of containers..01 ThinPrep Vial Age Algo ACOG Anjana... 3065 01 FLAG LEGEND: L-Low Normal,H-High Normal,LL-Alert Low,HH-Alert High <-Panic Low,>-Panic High,A-Abnormal,AA-Critical Abnormal Performed at: 01 [facility] [address] [place] [address] Lizzie Harp MD, IGP, APTIMA HPV, RFX 16/18,45 Note . [facility] Comment: TESTS RESULT FLAG UNITS REF RANGE LAB DIAGNOSIS: 02 NEGATIVE FOR INTRAEPITHELIAL LESION OR MALIGNANCY. Specimen adequacy: 02 Satisfactory for evaluation. No endocervical component is identified. Performed by: 02 Jon Koch Associate Pastor ([facility]) . 02 Note: Note 02 The Pap smear is a screening test designed to aid in the detection of premalignant and malignant conditions of the uterine cervix. It is not a diagnostic procedure and should not be used as the sole means of detecting cervical cancer. Both false-positive and false-negative reports do occur. Test Methodology: Note 02 This liquid based ThinPrep(R) pap test was screened with the use of an image guided system. HPV Genotype Reflex Note 02 Criteria not met, HPV Genotype not performed. FLAG LEGEND: L-Low Normal,H-High Normal,LL-Alert Low,HH-Alert High <-Panic Low,>-Panic High,A-Abnormal,AA-Critical Abnormal Performed at: [address] [address] Lizzie Harp MD, HPV APTIMA Negative Negative [facility] Comment: This nucleic acid amplification test detects fourteen high- risk HPV types (16,18,31,33,35,39,45,51,52,56,58,59,66,68) without differentiation. Performed at: = - [address] [id number] Communications Director: Lizzie Harp MD, Phone: [phone] Performed at: [address] [id number] Communications Director: Lizzie Harp MD, Phone: [phone] 12/31/2024 8:27 AM EDT 12/31/2024 2:59 PM EDT Narrative [facility] - 01/02/2025 3:10 PM EDT BRUSH-SPATULA CERVIX ENDOCERVIX Ileana Hays DO LAB BLOOD ORDERABLES Final Resul t [facility] * Pap Smear (12/31/2024 12:00 AM EDT) Swab Cervical swab / Unknown Lis Nurse [facility] LAB CYTOLOGY ORDERABLES Final Result EXTERNAL LAB from Last 3 Months Insurance FRONTPATH
--- OUTSIDE RECORDS SUMMARY | 2025-03-22 14:49 | XMS_ITS | Encounter Summary ---
Author Organization [facility] Address [address] [facility] [place] [address] Care Team Providers Care Soft Work Wrapper Layer And Examiner Name Role Phone Unavailable Primary Care Provider Unavailabl e Encounter Details Date Type Department Care Team (Late st Contact Info) Description 01/28/2025 External Result Encounter [facility] External Department Unsolicited Hernandez Hays DO [address] [place], [place] [id number] Social History Tobacco Use Types Packs/Day Years [...] Visit [facility] [place] [address] [place] [address] Hernandez Hays DO [address] [place] [address] 05/19/2025 10:30 AM EST Office Visit [facility] [place] [address] [place] [address] Katarzyna Manuel PA [address] [place] [address] [place] [address] documented as of this encounter Procedures Procedure Name Priority Date/Time Associated Diagnosis Comments BI MAMMOGRAM DIAGNOSTIC TOMOSYNTHESIS LEFT 01/28/2025 1:43 PM EDT documented in this encounter Results * Left diagnostic mammogram with tomosynthesis [...] mammogram. Impression dictated by: Henry Leon Jr., DEnriqueOEnrique 01/28/2025 2:16 PM Dictation Location: [place] [address] Addendum Dictated By: Henry Leon Jr, DO [...] date for the next mammogram. Dictation Location: [place] [address] Dictated By: Henry Leon Jr, DO 01/28/251342 Signed By: 01/28/251415 Narrative 01/28/2025 2:13 PM EDT [facility] [address] [place] [address] Mammography Report Signed with Addenda Patient: Lolita Hunter MR#: [id number] : 1985 Acct:[id number] Age/Sex: 40 / F Adm Date: 01/28/25 Loc: [place] Room: Type: [facility] Attending Dr: Hernandez Hays DO Ordering Provider: Hernandez Hays Date of Service: 01/28/25 Procedure(s): MM diagnostic mammo LT w/CAD Accession Number(s): ([id number]) MM/MM diagnostic mammo LT w/CAD: R92.8 Copies to: Hernandez Jensen CNP ADDENDUM 1 CLINICAL DATA: Callback focal [...] LT w/CAD Procedure Note Henry Leon Jr., DO - 01/28/2025 [facility] [address] [facility] [address] [place] [address] Mammography Report Signed with Addenda Patient: Lolita Hunter DMR#: [id number] : 1985Acct:[id number] Age/Sex: 40 / FAdm Date: 01/28/25 Loc: [place] Room:Type: [facility] Attending Dr: Hernandez Hays DO Ordering Provider: Hernandez Hays Date of Service: 01/28/25 Procedure(s): MM diagnostic mammo LT w/CAD Accession Number(s): ([id number]) MM/MM diagnostic mammo LT w/CAD: R92.8 Copies to: Hernandez Jensen CNP ADDENDUM 1 CLINICAL DATA: Callback focal [...] mammogram. Impression dictated by: Henry Leon Jr., D.O. 01/28/2025 2:16 PM Dictation Location: [place] [address] Addendum Dictated By: Henry Leon Jr, DO Addendum Signed By: <Electronically signed by Jr iMner DO in OV> 01/28/251415 Addendum Cosigned By: [...] due date for thenext mammogram. Dictation Location: [facility] Dictated By: Henry Leon Jr, DO 01/28/25 1343 Signed By:01/28/251415 us Hernandez Hays DO IM BI PROCEDURES Edited Result - Final documented in this encounter Visit Diagnoses Not on filedocumented in this encounter
--- OUTSIDE RECORDS SUMMARY | 2025-03-22 14:49 | XMS_ITS | Encounter Summary ---
Author Organization [facility] Address [address] [facility] [place] [address] Care Team Providers Care Telephone Recorder Name Role Phone Unavailable Primary Care Provider Unavailabl e Encounter Details Date Type Department Care Team ([facility] Contact Info) Description 01/29/2025 Abstract [facility] [place] [address] [place] [phone] Hernandez Hays DO [address] [place], [place] [phone] Social History Tobacco Use Types Packs/Day Years [...] Upcoming Encounters Date Type Department Care Team ([facility] Contact Info) Description 04/06/2025 2:30 PM EDT Procedure Visit [facility] [place] [address] [place] [phone] Hernandez Hays DO [address] [place] [address] 05/19/2025 10:30 AM EST Office Visit [facility] [place] [address] [place] [address] Katarzyna Manuel PA [address] [facility] [place] [address] documented as of this encounter Visit Diagnoses Not on filedocumented in this encounter
--- OUTSIDE RECORDS SUMMARY | 2025-03-22 14:49 | XMS_ITS | Encounter Summary ---
Author Organization [facility] Address [address] [facility] [place] [address] Care Team Providers Care Database Programmer Name Role Phone Unavailable Primary Care Provider Unavailabl e Encounter Details Date Type Department Care Team (Late Contact Info) Description 01/29/2025 Results Follow-Up [facility] [place] [address] [place] [phone] Radha Nj LPN [address] [place] [phone] Left diagnostic mammogram with tomosynthesis Social History Tobacco Use Types Packs/Day Years [...] AM EDT documented as of this encounter Miscellaneous Notes * Result Encounter Note - Radha Nj LPN - 01/29/2025 8:30 AM EDT Pt notified documented in this encounter Plan of Treatment Upcoming Encounters Date Type Department Care Team (Late Contact Info) Description 04/06/2025 2:30 PM EDT Procedure Visit [facility] [place] [address] [place] [address] Hernandez Hays DO [address] [facility] [place] [address] 05/19/2025 10:30 AM EST Office Visit [facility] [place] [address] [facility] [place] [address] [place] [address] Katarzyna Manuel PA [address] [facility] [place] [place] [address] documented as of this encounter Visit Diagnoses Not on filedocumented in this encounter
--- NOTE | 2025-03-22 14:51 | US_ITS ---
[place] [id number] Patient Name: ASHWIN GODOY MRN: [id number] date: 1985 Sex: F Assigned Patient Location: US Current Patient Location: US Accession/Order Number: [id number] Exam Date: 03/22/2025 14:52 Report Date: 03/22/2025 21:40 At the request of: ILEANA OROZCO DO Procedure: US pelvis w/ transvaginal Pelvic ultrasound INDICATION: Menorrhagia, vaginal bleeding for 3 weeks Uterus 11.3 x 4.6 x 5.4 cm. Endometrium 5 mm in thickness which is within normal limits. Right ovary 2.8 x 2.0 x 2.8 cm. Left ovary 5.0 x 2.5 x 2.5 cm. Bilateral ovarian follicles. Unremarkable arterial and venous vascular flow to both ovaries. US/US pelvis w/ transvaginal IMPRESSION: Physiologic findings. Impression dictated by: Rasta Jones M.D. 03/22/2025 9:40 PM Dictation Location: [place] [address] Electronically authenticated by: [id number] Y Date: 03/22/2025 21:40
== END 2025-03-22 14:45 | disposition home or self-care (01) ==
LOC: US 14:46
PROVIDERS: PCP Nurse Practitioner; Visit Provider Obstetrics & Gynecology
DX: N92.0 Excessive and frequent menstruation with regular cycle (principal)
CPT/HCPCS: 76830; 76856

== ENCOUNTER 2025-04-22 10:50 | Outpatient (OUT) | payer OTHER, SELFPAY ==
--- OUTSIDE RECORDS SUMMARY | 2025-04-22 10:55 | XMS_ITS | Clinical Summary ---
Author Organization [facility] Address [address] [facility] [place] [address] Care Team Providers Care Welfare Supervisor Name Role Phone Unavailable Primary Care Provider Unavailabl e Allergies Active AllergyReactionsCriticalityNoted HssyRsbyixtyTiuiughJorxzjr69/12/2023 CwtxfnrsfUpvvoxw03/12/2023 Medications MedicationSigDispense QuantityRefillsLast FilledStart DateEnd DateStatus Levonorgestrel (Mirena, 52 MG,) 20 MCG/DAY intrauterine device as directed IntrauterineActive phentermine (Adipex-P) 37.5 MG tablet Indications:Encounter for weight managementTake 1 tablet (37.5 mg) by mouth in the morning. Take before meals. 90 tablet 5Active Active Problems ProblemNoted DateDiagnosed HhgdZmfqtnl98/11/2023astroesophageal reflux disease 12/25/2022Insulin dlsxybggpd04/11/2023Major depressive disorder, single episode, isytxteunnd33/11/9633Vhklnvwbuj42/11/2023 Encounters DateTypeDepartmentCare ObqcFcfxfzrgdns25/21/2025 2:30 PM EDTProcedure Visit [facility] [place] [address] [place] [phone] Ileana Hays DO Pre-op examination; Menorrhagia with regular cycle; Pelvic pain; Dysmenorrhea; Dyspareunia in wlsgoz8004/01/20252639Wmznmb56/06/2025linisync Result Encounter [facility]OMS External Department Unsolicited Ileana Hays DO 03/16/20253093Kuohnm49/10/2025 3:30 PM EDTOffice Visit [facility] [place] [address] [place] [phone] Katarzyna Manuel, PA Encounter for weight hbpowdnkcx56/10/2025Bamboo flowsheet [facility] [address] [facility] [place] [address] [place] [address] Katarzyna Manuel PA 01/29/2025Results Follow-Up [facility] [place] [address] [place] [address] 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, 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 Left diagnostic mammogram with gkibwaexfzktk59/15/2025bstract [facility] [address] [facility] [place] [address] [place] [address] Ileana Hays, DO 01/28/2025External Result Encounter [facility]S External Department Unsolicited Ileana Hays, DO 01/27/2025 3:30 PM EDTOffice Visit [facility] [place] [address] [facility] [place] [address] [place] [address] Katarzyna Manuel, PA Encounter for weight /13/2025amboo flowsheet [facility] [address] [facility] [place] [address] [place] [address] Katarzyna Manuel, PA from Last 3 Months Family History Medical HistoryRelationNameCommentsCancerMaternal GrandfatherCancerMaternal GrandmotherArthritisMotherCancerMotherHypertensionMotherRelationNameStatus CommentsMaternal GrandfatherMaternal GrandmotherMother Social History Tobacco UseTypesPacks/DayYears UsedDateSmoking Tobacco: Every DayCigarettes Alcohol UseStandard Drinks/WeekCommentsYes0 (1 standard drink = 0.6 oz pure alcohol)occasional alcoholPHQ-2AnswerDate RecordedPatient Health Questionnaire-2 Lhbad7533CommentsNoSex and Gender InformationValueDate Recorded Sex Assigned at KvnszHfcaeo05/05/2023 10:22 AM EDTLegal DfvVxxfnm87/15/2023 11:47 PM EDTGender CriztafjLozvaz14/05/2023 10:22 AM EDTSexual Orientation Borrppgx96/05/2023 10:22 AM EDT Last Filed Vital Signs Vital SignReadingTime TakenCommentsBlood Egybtnuy846/7804/06/2025 2:58 PM EDT Pulse--Temperature--Respiratory Rate--Oxygen Saturation--Inhaled Oxygen Concentration--Etzshe10 kg (209 lb 6.4 oz)04/06/2025 2:58 PM PEHZwggeh625.7 cm (5' 8 )04/06/2025 2:58 PM EDTBody Mass Index31.8404/06/2025 2:58 PM EDT Plan of Treatment DateTypeDepartmentCare Team (Latest Contact Info)Ihyeoehxqyj76/26/2025 1:20 PM ESTOffice Visit [facility] [place] [address] [facility] [place] [address] [place] [phone] Ileana Hays DO [address] [facility] [address] [place], [place] [address] 05/19/2025 10:30 AM ESTOffice Visit [facility] [place] [address] [facility] [place] [address] [place] [address] Katarzyna Manuel PA [address] [facility] [address] [place], [place] [address] Procedures Procedure NamePriorityDate/TimeAssociated DiagnosisCommentsPOCT , URINE Tefnrsk9704/06/2025 3:30 PM EDT Menorrhagia with regular cycle Pelvic pain Dysmenorrhea Dyspareunia in female US PELVIS W/ HIMPAPXIQYPR20/06/2025 9:40 PM EDT BI MAMMOGRAM DIAGNOSTIC TOMOSYNTHESIS LEFT01/28/2025 1:43 PM EDT from Last 3 Months Results * POCT , urine manually resulted (04/06/2025 3:30 PM EDT)ComponentValue Ref RangeTest MethodAnalysis TimePerformed AtPathologist SignaturePreg Test, UrNegativeNegativeSpecimen (Source)Anatomical Location / LateralityCollection Method / VolumeCollection TimeReceived WdvoEfwys58/21/2025 3:30 PM EDT Narrative Authorizing ProviderResult TypeResult StatusCorey Lis DOPOINT OF CARE TEST ENTER/EDIT ORDERABLESFinal Result * US PELVIS W/ TRANSVAGINAL (03/22/2025 9:40 PM EDT)Anatomical RegionLaterality ModalityOtherSpecimen (Source)Anatomical Location / LateralityCollection Method / VolumeCollection TimeReceived Time03/22/2025 9:40 PM EDT Narrative 03/22/2025 9:42 PM EDT [facility] ?[address] ? [place], [facility] ? Ultrasound Report ? Signed ? Patient: MIDDLESWARTH,ASHWIN D ?MR#: [id number] ?? : 1985 ?Acct:[id number] ?? Age/Sex: 40 / F ?ADM Date: 03/22/25 ?? Loc: US ? Attending Dr: Ileana Hays D.O. ? Ordering Physician: Ileana Hays D.O. ?? Date of Service: 03/22/25 ?? Procedure(s): US pelvis w/ transvaginal ?? Accession Number(s): [id number] ? cc: Ileana Hays D.O.; CECY GEORGE ? [facility] ? [address] ? [place] [address] ? Patient Name: ?? ASHWIN GODOY ? MRN: [facility]:[id number] ? date: 1985 ?Sex: F ?? Assigned Patient Location: US ?? Current Patient Location: US ?? Accession/Order Number: [id number] ?? Exam Date: 03/22/2025 ??14:52 ?Report Date: 03/22/2025 ??21:40 ? At the request of: ?? ILEANA ??LIS ??DO ? Procedure: ??US pelvis w/ transvaginal ? Pelvic ultrasound ? INDICATION: Menorrhagia, vaginal bleeding for 3 weeks ? Uterus 11.3 x 4.6 x 5.4 cm. ??Endometrium 5 mm in thickness which is within ?? normal limits. ? Right ovary 2.8 x 2.0 x 2.8 cm. ? Left ovary 5.0 x 2.5 x 2.5 cm. ??Bilateral ovarian follicles. ??Unremarkable ?? arterial and venous vascular flow to both ovaries. ? US/US pelvis w/ transvaginal ?? IMPRESSION: Physiologic findings. ? Impression dictated by: Rasta Jones M.D. ??03/22/2025 9:40 PM ? Dictation Location: [facility]29 ? Electronically authenticated by: [id number] ??Y ?? Date: 03/22/2025 ??21:40 ? Dictated By: ?Rasta Jones M.D. ? Signed By: ?03/22/252141 ? DD/ 2140 ? TD/TT: ? Rehab Services Aide: Procedure Note Radiology, Radiologist, MD - 03/22/2025 [place] [address] Ultrasound Report Signed Patient: ASHWIN GODOY DMR#: [id number] : 1985Acct:[id number] Age/Sex: 40 / FADM Date: 03/22/25 Loc: US Attending Dr: Ileana Hays D.O. Ordering Physician: Ileana Hays D.O. Date of Service: 03/22/25 Procedure(s): US pelvis w/ transvaginal Accession Number(s): [id number] cc: Ileana Hays D.O.; CECY GEORGE [address] [address] Patient Name: ASHWIN GODOY MRN: [id number] date: 1985 Sex: F Assigned Patient Location: US Current Patient Location: US Accession/Order Number: [id number] Exam Date: 03/22/2025 14:52 Report Date: 03/22/2025 21:40 At the request of: ILEANA HAYS DO Procedure: US pelvis w/ transvaginal Pelvic ultrasound INDICATION: Menorrhagia, vaginal bleeding for 3 weeks Uterus 11.3 x 4.6 x 5.4 cm. Endometrium 5 mm in thickness which is within normal limits. Right ovary 2.8 x 2.0 x 2.8 cm. Left ovary 5.0 x 2.5 x 2.5 cm. Bilateral ovarian follicles. Unremarkable arterial and venous vascular flow to both ovaries. US/US pelvis w/ transvaginal IMPRESSION: Physiologic findings. Impression dictated by: Rasta Jones M.D. 03/22/2025 9:40 PM Dictation Location: [facility]29 Electronically authenticated by: [id number] Y Date: 1:40 Dictated By: Rasta Jones M.D. Signed By:03/22/252141 DD/ 39 TD/TT: Rehab Services Aide: Authorizing ProviderResult TypeResult StatusCorey Lis DOCLINISYNC IMAGINGFinal Result * Left diagnostic mammogram with tomosynthesis (01/28/2025 1:43 PM EDT) Anatomical RegionLateralityModalityBreastLeftMammographySpecimen (Source) Anatomical Location / LateralityCollection Method / VolumeCollection Time Received Time01/28/2025 1:43 PM EDT Impressions 01/28/2025 2:13 PM EDT IMPRESSION: ? NO MAMMOGRAPHIC EVIDENCE OF MALIGNANCY. ? ROUTINE FOLLOW-UP IS RECOMMENDED IN ONE YEAR. ? RESULT CODE: 1 ?Negative ? DENSITY CODE: 2 (approximately 25-50% glandular) There are scattered areas of fibroglandular density. ? FOLLOW UP: 1YR ? The false-negative rate of mammography is approximately 10-percent. ? Management of a palpable abnormality must be based on clinical grounds. ? Patient was entered into a reminder system with a target due date for the next mammogram. ? Impression dictated by: Henry Leon Jr., D.O. ??01/28/2025 2:16 PM ? Dictation Location: [facility] ? Addendum Dictated By: ?Henry Leon Jr, DO ? Addendum Signed By: <Electronically signed by Henry Leon Jr, DO in OV> ?01/28/251415 ?? Addendum Cosigned By: ? DD/ ? TD/TT: 01/28/25 ? CLINICAL DATA: ?Callback focal asymmetries left breast ? Left DIAGNOSTIC MAMMOGRAM - WITH TOMOSYNTHESIS AND CAD ? COMPARISON:Outside mammogram 01/14/2025 ? Tomosynthesis imaging was obtained using low-dose digital technique. ?? This examination was reviewed with the aid of CAD. ? FINDINGS: ? The left breast is composed of scattered fibroglandular densities. Previously identified focal asymmetries compress out on the spot compression view suggests overlapping stroma. ? MM/MM diagnostic mammo LT w/CAD ?? IMPRESSION: ? NO MAMMOGRAPHIC EVIDENCE OF MALIGNANCY. ? ROUTINE FOLLOW-UP IS RECOMMENDED IN ONE YEAR. ? RESULT CODE: 1 ? Negative ? DENSITY CODE: 2 (approximately 25-50% glandular) There are scattered areas of fibroglandular density. ? FOLLOW UP: 1YR ? The false-negative rate of mammography is approximately 10-percent. ? Management of a palpable abnormality must be based on clinical grounds. ? Patient was entered into a reminder system with a target due date for the next mammogram. ? Dictation Location: [facility] ? Dictated By: ?Henry Leon Jr, DO ? 01/28/25 1343 ? Signed By: ?01/28/25 1416 Narrative 01/28/2025 2:13 PM EDT [facility] ?[address] ?[place] [address] ?? [phone] ? Mammography Report ? Signed with Addenda ? Patient: Middleswarth,Ashwin D ?MR#: M ?? [id number] ? : 1985 ?Acct:[id number] ? Age/Sex: 40 / F ?Adm Date: 01/28/25 ? Loc: [place] ?Room: ?Type: REG CLI ?? Attending Dr: Ileana Hays DO ? Ordering Provider: Ileana Hays ? Date of Service: 01/28/25 ? Procedure(s): MM diagnostic mammo LT w/CAD ?? Accession Number(s): ([id number]) MM/MM diagnostic mammo LT w/CAD: R92.8 ? Copies to: Ileana Hays ?? Cecy George CNP ? ADDENDUM 1 ?? CLINICAL DATA: ?Callback focal asymmetries left breast ? Left DIAGNOSTIC MAMMOGRAM - WITH TOMOSYNTHESIS AND CAD ? COMPARISON:Outside mammogram 01/14/2025 ? Tomosynthesis imaging was obtained using low-dose digital technique. ?? This examination was reviewed with the aid of CAD. ? FINDINGS: ? The left breast is composed of scattered fibroglandular densities. Previously identified focal asymmetries compress out on the spot compression view suggests overlapping stroma. ? Addendum Dictated By: ?Henry Leon Jr, DO ? Addendum Signed By: <Electronically signed by Henry Leon Jr, DO in OV> ?01/28/251415 ?? Addendum Cosigned By: ? DD/ ? TD/TT: 01/28/25 ? ADDENDUM 1 ?? MM/MM diagnostic mammo LT w/CAD ?? Procedure Note Henry Leon Jr., - 01/28/2025 [place] [address] Mammography Report Signed with Karli Patient: Ashwin Godoy DMR#: [id number] : 1985Acct:[id number] Age/Sex: 40 / FAdm Date: 01/28/25 Loc: [place] Room:Type: [facility] Attending Dr: Ileana Hays DO Ordering Provider: Ileana Hays Date of Service: 01/28/25 Procedure(s): MM diagnostic mammo LT w/CAD Accession Number(s): ([id number]) MM/MM diagnostic mammo LT w/CAD: R92.8 Copies [...] Jr., D.O. 01/28/2025 2:16 PM Dictation Location: [facility] Addendum Dictated By: Henry Leon Jr, DO [...] due date for thenext mammogram. Dictation Location: [facility] Dictated By: Henry Leon Jr, DO 01/28/251342 Signed By:01/28/251415 Authorizing ProviderResult TypeResult StatusCorey Lis DOIMG BI PROCEDURES Edited Result - Final from Last 3 Months Insurance
[2025-04-22 11:27] LABS: Hematocrit 41.6 % (36.0-48.0); Hemoglobin 13.8 g/dL (12.0-16.0); Immature Granulocytes Abs Auto 0.02 10^3/uL (0.00-0.03); Immature Granulocytes Pct Auto 0.3 % (0.0-0.5); Lymphocytes Absolute Auto 2.4 10^3/uL (1.2-3.8); Mean Corpuscular HGB Conc 33.2 g/dL (29.9-35.2); Mean Corpuscular Hemoglobin 28.9 pg (26.7-34.0); Mean Corpuscular Volume 87.2 fL (81.0-99.0); Platelet Count 264 10^3/uL (150-450); Red Blood Count 4.77 10^6/uL (4.20-5.40); White Blood Count 7.9 10^3/uL (4.0-11.0)
[2025-04-22 11:45] LABS: INR 1.23; Partial Thromboplastin Time 26.4 sec (22.3-36.2); Prothrombin Time 12.8 sec (9.0-11.6)
[2025-04-22 12:12] LABS: Alanine Aminotransferase 40 U/L (14-59); Albumin Globulin Ratio 1.1; Albumin Level 4.1 g/dL (3.4-5.0); Alkaline Phosphatase 55 U/L (46-116); Anion Gap 11.8; Aspartate Amino Transferase 15 U/L (15-37); Blood Urea Nitrogen 9.0 mg/dL (7.0-18.0); Calcium 9.2 mg/dL (8.5-10.1); Carbon Dioxide 29.0 mmol/L (21.0-32.0); Chloride 103 mmol/L (98-107); Estimated GFR (African America >60 (>=60 mL/min/1.73m^2); Estimated GFR (Non-African Ame >60 (>=60 mL/min/1.73m^2); Globulin 3.7 g/dL; Glucose 89 mg/dL (74-106); Potassium 3.8 mmol/L (3.5-5.1); Sodium 140 mmol/L (136-145); Total Protein 7.8 g/dL (6.4-8.2)
== END 2025-04-22 10:51 | disposition home or self-care (01) ==
LOC: PST 10:53
PROVIDERS: PCP Nurse Practitioner; Visit Provider Obstetrics & Gynecology
DX: Z01.812 Encounter for preprocedural laboratory examination (principal); N92.0 Excessive and frequent menstruation with regular cycle; N94.10 Unspecified dyspareunia; N94.6 Dysmenorrhea, unspecified
CPT/HCPCS: 36415; 80048; 80076; 85025; 85610; 85730; 86850; 86900; 86901

== ENCOUNTER 2025-05-03 14:48 | Outpatient (OUT) | payer OTHER, SELFPAY ==
[2025-05-03 15:47] LABS: INR 1.16; Prothrombin Time 12.1 sec (9.0-11.6)
== END 2025-05-03 14:49 | disposition home or self-care (01) ==
LOC: LAB 14:50
PROVIDERS: PCP Nurse Practitioner; Visit Provider Obstetrics & Gynecology
DX: R79.1 Abnormal coagulation profile (principal)
CPT/HCPCS: 36415; 85610

== ENCOUNTER 2025-05-06 11:23 | Outpatient (RCR) | payer OTHER, SELFPAY | END 2025-05-16 23:59 | disposition home or self-care (01) | LOC: HEMC 11:23 | PROVIDERS: PCP Nurse Practitioner; Visit Provider Internal Medicine Hematology & Oncology | DX: R79.1 Abnormal coagulation profile (principal); F17.210 Nicotine dependence, cigarettes, uncomplicated | CPT/HCPCS: G0463 ==